=== PATIENT | male | born 1960 | race Caucasian/White ===

== ENCOUNTER 2020-12-23 15:53 | Outpatient (CLI) | payer OTHER, SELFPAY ==
--- NOTE | 2020-12-23 16:14 | XRR_ITS ---
PROCEDURE INFORMATION: Exam: XR Abdomen Exam date and time: 12/23/2020 4:14 PM Age: 60 years old Clinical indication: Abdominal pain; Localized; Left lower quadrant (llq); Additional info: R10.32 - left lower quadrant pain TECHNIQUE: Imaging protocol: XR of the abdomen. Views: Frontal supine view of the abdomen. 1 View. COMPARISON: No relevant prior studies available. FINDINGS: Gastrointestinal tract: Normal. No bowel dilation. Vasculature: Several phleboliths are present in the pelvis. Bones/joints: A 13 mm calcification is seen in the left mid abdomen near the L2-L3 region, which may be a renal stone in the left ureter. XR/XR KUB [id number] IMPRESSION: Possible proximal left ureter 13 mm renal stone. Correlate clinically and consider CT scan renal stone protocol. Radiation Dose CTDIVOL = (mGy): DLP = (mGy-cm)
== END 2020-12-23 15:54 | disposition home or self-care (01) ==
PROVIDERS: Visit Provider Nurse Practitioner Family
DX: R10.32 Left lower quadrant pain (principal)
CPT/HCPCS: 74018

== ENCOUNTER → 2023-11-15 10:51 | Outpatient (BNVA) | payer MEDICARE, OTHER, SELFPAY | PROVIDERS: Visit Provider Nurse Practitioner Family | DX: R10.9 Unspecified abdominal pain (principal) | CPT/HCPCS: 81000 ==

== ENCOUNTER → 2023-11-24 14:49 | Outpatient (BNVA) | payer MEDICARE, OTHER, SELFPAY | PROVIDERS: Visit Provider Nurse Practitioner | DX: I10 Essential (primary) hypertension (principal) | CPT/HCPCS: 80053; 80061; 84443; 85025; G0103 ==

== ENCOUNTER 2024-01-10 06:00 | Outpatient (RCR) | payer MEDICARE, OTHER, SELFPAY | END 2024-02-04 23:59 | disposition home or self-care (01) | LOC: MPT 06:00 | PROVIDERS: PCP Nurse Practitioner; Visit Provider Nurse Practitioner | DX: M25.551 Pain in right hip (principal); M25.552 Pain in left hip | CPT/HCPCS: 97162 ==

== ENCOUNTER 2024-01-17 16:40 | Outpatient (CLI) | payer MEDICARE, OTHER, SELFPAY ==
--- NOTE | 2024-01-17 16:45 | MR_ITS ---
WS: [id number] MRI LUMBAR SPINE NONCONTRAST TECHNIQUE: Sagittal T1, T2 and STIR imaging. Axial T1 and T2 imaging. CLINICAL INFORMATION: M25.559 - Pain in unspecified hip COMPARISON: None. FINDINGS: Mild lumbar curve. No acute compression. Severe central canal stenosis L4-5 due to large central disc extrusion. L1-L2: Mild facet arthropathy. Spinal canal and foramen are patent. L2-L3: Mild annular bulging. Mild central canal stenosis. Slight narrowing of the RIGHT subarticular recess. Mild RIGHT foraminal narrowing. Moderate facet arthropathy. L3-L4: Mild annular bulging. Mild LEFT foraminal narrowing with a small LEFT foraminal protrusion. RI GHT foramen is patent. Moderate facet arthropathy. L4-L5: Large central disc extrusion with severe central canal stenosis and effacement of the thecal s ac. Moderate facet arthropathy. Mild bilateral foraminal narrowing. L5-S1: Shallow central protrusion with slight contact of the S1 nerve roots. Moderate facet arthropat hy. Foramen are patent. Visualized pelvic bony structures: Normal. Paravertebral soft tissues: Normal. MR/MR lumbar spine wo con* [id number] IMPRESSION: 1. Large central disc extrusion L4-5 with severe central canal stenosis. Disc material measures 9.7 x 15.8 mm AP by craniocaudal. Recommend spine surgery con sultation. 2. Mild central canal stenosis L2-3. 3. Tiny shallow central protrusion L5-S1 with slight contact of the traversing S1 nerve roots.
== END 2024-01-17 16:41 | disposition home or self-care (01) ==
LOC: RAD 16:40
PROVIDERS: PCP Nurse Practitioner; Visit Provider Nurse Practitioner
DX: M47.896 Other spondylosis, lumbar region (principal); M51.26 Other intervertebral disc displacement, lumbar region; M51.27 Other intervertebral disc displacement, lumbosacral region
CPT/HCPCS: 72148

== ENCOUNTER → 2024-02-07 15:47 | Outpatient (BNVA) | payer MEDICARE, OTHER, SELFPAY | PROVIDERS: PCP Nurse Practitioner; Visit Provider Orthopaedic Surgery | DX: M54.50 Low back pain, unspecified (principal); M48.062 Spinal stenosis, lumbar region with neurogenic claudication | CPT/HCPCS: 72110; 99204 ==

== ENCOUNTER → 2024-07-26 14:44 | Outpatient (BNVA) | payer MEDICARE, OTHER, SELFPAY | PROVIDERS: PCP Nurse Practitioner; Visit Provider Orthopaedic Surgery | DX: M48.062 Spinal stenosis, lumbar region with neurogenic claudication (principal) | CPT/HCPCS: 99213 ==

== ENCOUNTER 2024-08-09 15:49 | Outpatient (CLI) | payer MEDICARE, OTHER, SELFPAY ==
--- NOTE | 2024-08-09 16:00 | MR_ITS ---
WS: [id number] MRI LUMBAR SPINE NONCONTRAST HISTORY: back pain COMPARISON: 01/17/2024 TECHNIQUE: Sagittal and axial multisequence imaging is submitted. Mild increase in thoracic kyphosis. Mild straightening of the normal lumbar lordosis. Chronic fatty changes along the endplates of L4 and L5. No marrow edema or fracture. Vertebral body hemangioma at L1. Advanced degenerative disc base narrowing and desiccation at L4-5. Conus terminates normally at L1-2 disc level. L1-L2: Mild facet arthritis. No stenosis. L2-L3: Mild annular disc bulge with a central disc protrusion. Central disc protrusion is new. There is encroachment upon the ventral thecal sac and subarticular recesses. Shallow bilateral foraminal disc protrusions. Moderate central, subarticular recess and mild foraminal stenosis. Increase in facet joint arthritis, greatest on the RIGHT. Progression of stenosis and degenerative change since the prior study. L3-L4: Mild annular disc bulging with mild ligamentum flavum and facet arthritis. Mild bilateral foraminal stenosis. There is very slight encroachment also subarticular recesses which has progressed. L4-L5: Diffuse annular disc bulging with osteophytic ridging. Previously described large disc protrusion at this level has significantly decreased in size. No history of prior surgery. There is a central disc osteophyte now present extending slightly caudad to the disc level. Severe ligamentum flavum a nd facet arthritis. There is severe central, subarticular recess and mild bilateral foraminal stenosis. Small foraminal disc osteophyte complexes. L5-S1: Mild disc bulging with a central disc protrusion. Very slight disc contact on the S1 nerve roots. Moderate facet arthritis. MR/MR lumbar spine wo con* [id number] IMPRESSION: 1. Advanced degenerative disc disease at L4-5. 2. Large previously described disc protrusion at L4-5 has significantly decrea sed in size but is still present. 3. L4-5: Continued severe central, bilateral subarticular recess and mild fora leora stenosis. 4. L2-3: Central disc protrusion is new since the prior study. Moderate centra l, subarticular recess and mild foraminal stenosis. Progression of stenosis and degenerative facet disease. 5. L3-4: Mild bilateral foraminal stenosis and subarticular recess narrowing. 6. L5-S1: Small central disc protrusion with mild contact on the traversing S1 nerve roots. Moderate bilateral facet arthritis.
== END 2024-08-09 15:50 | disposition home or self-care (01) ==
LOC: RAD 15:50
PROVIDERS: PCP Nurse Practitioner; Visit Provider Orthopaedic Surgery
DX: M54.50 Low back pain, unspecified (principal)
CPT/HCPCS: 72148

== ENCOUNTER → 2024-08-14 14:01 | Outpatient (BNVA) | payer MEDICARE, OTHER, SELFPAY | PROVIDERS: PCP Nurse Practitioner; Visit Provider Orthopaedic Surgery | DX: M48.062 Spinal stenosis, lumbar region with neurogenic claudication (principal); Z09 Encounter for follow-up examination after completed treatment for conditions other than malignant neoplasm | CPT/HCPCS: 36415; 80053; 81001; 85025; 99214 ==

== ENCOUNTER → 2024-09-25 10:55 | Outpatient (BNVA) | payer MEDICARE, OTHER, SELFPAY | PROVIDERS: PCP Nurse Practitioner; Referring Provider Orthopaedic Surgery; Visit Provider Specialist | DX: R20.0 Anesthesia of skin (principal); M79.601 Pain in right arm | CPT/HCPCS: 95911 ==

== ENCOUNTER → 2024-10-02 14:09 | Outpatient (BNVA) | payer MEDICARE, OTHER, SELFPAY | PROVIDERS: PCP Nurse Practitioner; Visit Provider Orthopaedic Surgery | DX: G56.03 Carpal tunnel syndrome, bilateral upper limbs (principal); M54.2 Cervicalgia; Z09 Encounter for follow-up examination after completed treatment for conditions other than malignant neoplasm | CPT/HCPCS: 99213 ==

== ENCOUNTER 2024-10-16 13:49 | Outpatient (CLI) | payer MEDICARE, OTHER, SELFPAY ==
--- NOTE | 2024-10-16 13:45 | MR_ITS ---
WS: [id number] MRI CERVICAL SPINE NONCONTRAST HISTORY: Neck Pain COMPARISON: None available. Technique: Multiplanar, multisequence noncontrast imaging of the cervical spine. Normal cervical alignment with no compression fracture or significant disc space narrowing. Signal within the cervical cord is normal. Visualized posterior fossa is unremarkable. Craniocervical junction, C1 and C2 relationship, odontoid process and soft tissues are normal. C2-C3: Small foraminal osteophytes and mild facet arthritis, LEFT greater than RIGHT. C3-C4: Mild annular disc bulging and small foraminal osteophytes. Mild facet arthritis. Mild bilateral foraminal stenosis. C4-C5: Small central disc protrusion with annular disc bulging and osteophytic ridging. Mild foraminal stenosis. C5-C6: Mild osteophytic ridging with bilateral facet arthritis. Mild to moderate bilateral foraminal stenosis. C6-C7: Small foraminal osteophytes. No significant stenosis. Mild facet arthritis. C7-T1: Normal. Paraspinal soft tissue are normal. MR/MR cervical spin wo con* [id number] IMPRESSION: 1. No high-grade central stenosis. 2. Bilateral foraminal stenoses due to disc and osteophyte and facet arthritis . Mild to moderate stenosis at C5-6. 3. Mild bilateral foraminal stenosis at C3-4 and C4-5.
== END 2024-10-16 13:50 | disposition home or self-care (01) ==
LOC: RAD 13:50
PROVIDERS: PCP Nurse Practitioner; Visit Provider Orthopaedic Surgery
DX: M48.02 Spinal stenosis, cervical region (principal); M50.322 Other cervical disc degeneration at C5-C6 level; M99.73 Connective tissue and disc stenosis of intervertebral foramina of lumbar region; M99.61 Osseous and subluxation stenosis of intervertebral foramina of cervical region; M50.323 Other cervical disc degeneration at C6-C7 level; M50.221 Other cervical disc displacement at C4-C5 level; M25.78 Osteophyte, vertebrae; M47.892 Other spondylosis, cervical region
CPT/HCPCS: 72141

== ENCOUNTER → 2024-10-18 11:22 | Outpatient (BNVA) | payer MEDICARE, OTHER, SELFPAY | PROVIDERS: PCP Nurse Practitioner; Visit Provider Orthopaedic Surgery | DX: G56.03 Carpal tunnel syndrome, bilateral upper limbs (principal) | CPT/HCPCS: 99204 ==

== ENCOUNTER → 2024-10-23 15:24 | Outpatient (BNVA) | payer MEDICARE, OTHER, SELFPAY | PROVIDERS: PCP Nurse Practitioner; Visit Provider Orthopaedic Surgery | DX: M48.062 Spinal stenosis, lumbar region with neurogenic claudication (principal); M54.2 Cervicalgia; Z09 Encounter for follow-up examination after completed treatment for conditions other than malignant neoplasm | CPT/HCPCS: 99213 ==

== ENCOUNTER → 2024-10-29 10:59 | Outpatient (BNVA) | payer MEDICARE, OTHER, SELFPAY | PROVIDERS: PCP Nurse Practitioner; Visit Provider Nurse Practitioner | DX: Z12.5 Encounter for screening for malignant neoplasm of prostate (principal); I10 Essential (primary) hypertension | CPT/HCPCS: 80053; 80061; 83735; 85025; G0103 ==

== ENCOUNTER → 2024-10-30 13:55 | Outpatient (BNVA) | payer MEDICARE, OTHER, SELFPAY | PROVIDERS: PCP Nurse Practitioner; Visit Provider Nurse Practitioner Family | DX: M54.2 Cervicalgia (principal); M48.062 Spinal stenosis, lumbar region with neurogenic claudication | CPT/HCPCS: 99214 ==

== ENCOUNTER 2024-11-22 06:47 | Outpatient (CLI) | payer MEDICARE, OTHER, SELFPAY ==
--- NOTE | 2024-11-22 07:00 | CT_ITS ---
WS: [id number] CT ABDOMEN AND PELVIS NONCONTRAST HISTORY: N20.0 - Calculus of kidney TECHNIQUE: Imaging performed through the abdomen and pelvis. Coronal and sagittal reformats are submitted. All CT scans at [facility] use at least one of these dose optimization techniques: automated exposure control; mA and/or kV adjustment per patient size (includes targeted exams where dose is matched to clinical indication); or iterative reconstruction. DLP: 958.03 mGy.cm COMPARISON: 07/16/2008 Lower thorax: Lung bases are clear. Calcification LEFT lung base. Moderate cardiomegaly. Small hiatal hernia. Liver: Normal size liver. No mass or bile duct dilatation. Gallbladder: Normal gallbladder. No pericholecystic fluid or cholelithiasis. No gallbladder wall thickening. Pancreas: Normal size and attenuation. Normal pancreatic duct. No pancreatitis or mass. Spleen: Normal. Adrenal glands: RIGHT adrenal gland nodule measures 7 mm. Normal LEFT adrenal gland. Right kidney: Normal size kidney with no mass or hydronephrosis. Minimal perinephric stranding. Left kidney: Perinephric stranding around the LEFT kidney. There is an acute inflammatory process with significant fat stranding in the central renal pelvis surrounding a central renal calcification measuring 14 x 7 mm. Acute inflammation extends into the proximal ureter. The LEFT ureter is very slightly dilated. There is a more focal dilatation near the pelvic brim with a changing caliber distally. The distal ureter becomes normal size. No distal obstructing stone identified. Aorta: Mild atherosclerosis abdominal aorta with no aneurysm. No free fluid, intraperitoneal air or significant lymphadenopathy. GI tract: No GI tract obstruction. Normal appendix. No colitis. Abdominal wall: Small umbilical hernia contains fat only. Pelvis: No free fluid in the pelvis. Urinary bladder is nondistended. Bilateral inguinal canal hernias contain fat only. LEFT inguinal hernias greater in size than the RIGHT. Osseous structures: Unremarkable. CT/CT kidney stone [id number] IMPRESSION: 1. Acute inflammatory changes most consistent with pyelonephritis in the centr al LEFT renal pelvis surrounding a 14 x 7 mm nonobstructing calcification. 2. Inflammatory changes extend into the proximal LEFT ureter. 3. There is a focal dilatation involving the distal LEFT ureter near the pelvi c brim with a change in caliber distally. There is no stone identified causing the slight dilatation. This is a new finding since 2008. Possibility of a urete ral stricture causing mild dilatation should be considered. 4. Normal appendix. 5. No free fluid or free air.
== END 2024-11-22 06:48 | disposition home or self-care (01) ==
LOC: RAD 06:48
PROVIDERS: PCP Nurse Practitioner; Visit Provider Nurse Practitioner
DX: N20.0 Calculus of kidney (principal); I70.0 Atherosclerosis of aorta; N28.89 Other specified disorders of kidney and ureter; K42.9 Umbilical hernia without obstruction or gangrene
CPT/HCPCS: 74176